=== PATIENT | female | born 1945 | race Caucasian/White ===

== ENCOUNTER 2021-04-16 12:55 | Emergency (ER) | payer MEDICARE, OTHER ==
[~2021-04-16 12:55] MED LIST: ACID CONTROL150 MG PO; IMDUR 30MG TABL30 MG PO; LOPRESSOR25 MG PO; LORTAB 5-325 M1 EACH PO; NEURONTIN300 M1 PO; PLAVIX75 MG PO; SYMBICORT 1601 PUFFS INH; ZETIA10 MG PO; ZOCOR40 MG PO
[2021-04-16 15:06] LABS: BASOPHIL 0.4 % (0-2); HCT 41.2 % (37.0-47.0); HGB 13.4 g/dl (12.5-16.0); LYMPHOCYTE 25.9 % (15-48); MCHC 32.5 g/dL (32.0-36.0); MCV 95.4 fL (78.0-100.0); MPV 10.8 fL (6.0-9.5); NEUTROPHIL 64.3 % (41-80); NRBC 0; PLT 168 K/uL (150-400); RBC 4.32 M/uL (4.20-5.40); RDW 13.3 % (11.5-14.0)
[2021-04-16 15:15] LABS: ALBUMIN 3.6 g/dL (3.4-5.0); BILIRUBIN - TOTAL 0.4 mg/dL (0.2-1.0); GLOBULIN (CALCULATION) 3.2 g/dL; POTASSIUM 5.6 mmol/L (3.5-5.1); TOTAL PROTEIN 6.8 g/dL (6.4-8.2)
[2021-04-16 16:39] LABS: BILIRUBIN NEGATIVE (NEGATIVE); BLOOD TRACE-INTACT Ery/uL (NEGATIVE); CLARITY CLEAR (CLEAR); COLOR YELLOW (YELLOW); GLUCOSE (U) NORMAL (NORMAL); LEUKOCYTES 1+ Leu/uL (NEGATIVE); NITRITE NEGATIVE (NEGATIVE); PROTEIN NEGATIVE (NEGATIVE); SPECIFIC GRAVITY >=1.030 (1.001-1.030); UROBILINOGEN 0.2 mg/dL (0.2-1.0)
[2021-04-16] MEDS ORDERED: ULTRAM50 MG PO (16:49)
[2021-04-16] MEDS ORDERED: ZOFRAN4 M1 PO (16:49)
[2021-04-16 16:53] LABS: BACTERIA 3+
== END 2021-04-16 17:18 | disposition home or self-care (01) ==
LOC: FER 12:55
PROVIDERS: Emergency Medicine
DX: M79.672 Pain in left foot (principal); M79.671 Pain in right foot; E87.5 Hyperkalemia; E11.9 Type 2 diabetes mellitus without complications; J44.9 Chronic obstructive pulmonary disease, unspecified; F17.200 Nicotine dependence, unspecified, uncomplicated; R11.2 Nausea with vomiting, unspecified; Z79.84 Long term (current) use of oral hypoglycemic drugs; Z79.02 Long term (current) use of antithrombotics/antiplatelets; Z79.891 Long term (current) use of opiate analgesic; Z79.899 Other long term (current) drug therapy
CPT/HCPCS: 36415; 80053; 81001; 85025; 87088; 93005

== ENCOUNTER 2021-08-21 01:47 | Emergency (ER) | payer MEDICARE, OTHER ==
[~2021-08-21 01:47] MED LIST changes: +LYRICA 50MG CAP50 MG PO; +METFORMIN HCL500 MG PO; +NORCO 5-325 TA1 EACH PO; +ULTRAM50 MG PO; +XARELTO10 MG PO; +ZOFRAN4 M1 PO
[2021-08-21 02:32] LABS: BASOPHIL 0.2 % (0-2); EOSINOPHIL 0.6 % (0-7); HCT 40.5 % (37.0-47.0); HGB 12.8 g/dl (12.5-16.0); LYMPHOCYTE 13.2 % (15-48); MCH 30.4 pg (25.0-31.0); MCHC 31.6 g/dL (32.0-36.0); MCV 96.2 fL (78.0-100.0); MONOCYTE 8.3 % (0-12); MPV 10.8 fL (6.0-9.5); NEUTROPHIL 77.4 % (41-80); NRBC 0; PLT 165 K/uL (150-400); RBC 4.21 M/uL (4.20-5.40); RDW 13.6 % (11.5-14.0)
[2021-08-21 02:45] LABS: ALBUMIN 3.5 g/dL (3.4-5.0); BILIRUBIN - TOTAL 0.3 mg/dL (0.2-1.0); BUN/CREAT RATIO (CALC) 21.4 RATIO; CREATININE 0.98 mg/dL (0.51-0.95); GLOBULIN (CALCULATION) 3.5 g/dL; POTASSIUM 4.2 mmol/L (3.5-5.1)
[2021-08-21 03:08] LABS: CORONAVIRUS 2019 SARS-COV-2 NEGATIVE (NEGATIVE); INFLUENZA A NAA NEGATIVE (NEGATIVE)
[2021-08-21] MEDS ORDERED: MEDROL 4MG DOSEP4 MG PO (04:56)
[2021-08-21] MEDS ORDERED: VENTOLIN HFA18 GM INH (04:56)
== END 2021-08-21 05:24 | disposition home or self-care (01) ==
LOC: FER 01:47
PROVIDERS: Emergency Medicine
DX: J44.1 Chronic obstructive pulmonary disease with (acute) exacerbation (principal); I25.10 Atherosclerotic heart disease of native coronary artery without angina pectoris; I10 Essential (primary) hypertension; E11.9 Type 2 diabetes mellitus without complications; F17.200 Nicotine dependence, unspecified, uncomplicated; Z88.6 Allergy status to analgesic agent; Z20.822 Contact with and (suspected) exposure to COVID-19
CPT/HCPCS: 36415; 71045; 71275; 80053; 84484; 85025; 85379; 93005; 94640; 94664; 94760; J2930; Q9967; U0002

== ENCOUNTER → 2021-09-23 | Day surgery (SDC) | payer MEDICARE, OTHER ==
[~2021-09-23] VITALS: Ht 160 cm; Wt 75.1 kg
[~2021-09-23] MED LIST changes: +MACROBID100 MG PO; +MEDROL 4MG DOSEP4 MG PO; +ONDANSETRON ODT8 MG PO; +VENTOLIN HFA18 GM INH; +XARELTO PO
[2021-09-23 09:58] LABS: HCT 40.8 % (37.0-47.0); HGB 12.9 g/dl (12.5-16.0); MCH 30.3 pg (25.0-31.0); MCHC 31.6 g/dL (32.0-36.0); MCV 95.8 fL (78.0-100.0); MPV 10.5 fL (6.0-9.5); RBC 4.26 M/uL (4.20-5.40); RDW 13.5 % (11.5-14.0); WBC 6.5 K/uL (4.0-10.5)
[2021-09-23 10:13] LABS: ALBUMIN 3.2 g/dL (3.4-5.0); BILIRUBIN - TOTAL 0.3 mg/dL (0.2-1.0); BUN/CREAT RATIO (CALC) 26.2 RATIO; CREATININE 0.84 mg/dL (0.51-0.95); GLOBULIN (CALCULATION) 3.6 g/dL; POTASSIUM 4.4 mmol/L (3.5-5.1); TOTAL PROTEIN 6.8 g/dL (6.4-8.2)
== END | disposition home or self-care (01) ==
LOC: FAS 08:35
PROVIDERS: Surgery
DX: K80.12 Calculus of gallbladder with acute and chronic cholecystitis without obstruction (principal); K66.0 Peritoneal adhesions (postprocedural) (postinfection); I25.10 Atherosclerotic heart disease of native coronary artery without angina pectoris; E11.40 Type 2 diabetes mellitus with diabetic neuropathy, unspecified; I10 Essential (primary) hypertension; E78.5 Hyperlipidemia, unspecified
CPT/HCPCS: 36415; 80053; 82962; 93005; C1758; J1170; J2250; J2405; J2704; J2710; J7120; Q9967

== ENCOUNTER 2021-11-05 18:33 | Emergency (ER) | payer MEDICARE, OTHER ==
[~2021-11-05 18:33] MED LIST changes: +ALDACTONE25 MG PO; +AZITHROMYCIN250 MG PO; +CEFDINIR300 MG PO; +PROTONIX 40MG T40 MG PO
[2021-11-05 19:59] LABS: BASOPHIL 0.2 % (0-2); EOSINOPHIL 0.4 % (0-7); HCT 41.8 % (37.0-47.0); HGB 13.3 g/dl (12.5-16.0); LYMPHOCYTE 3.5 % (15-48); MCHC 31.8 g/dL (32.0-36.0); MCV 94.1 fL (78.0-100.0); MONOCYTE 2.3 % (0-12); MPV 10.6 fL (6.0-9.5); NRBC 0; PLT 227 K/uL (150-400); RBC 4.44 M/uL (4.20-5.40); RDW 13.7 % (11.5-14.0); WBC 10.9 K/uL (4.0-10.5)
[2021-11-05 20:01] LABS: NEUTROPHIL 93.3 % (41-80)
[2021-11-05 20:11] LABS: ALBUMIN 3.5 g/dL (3.4-5.0); BILIRUBIN - TOTAL 0.4 mg/dL (0.2-1.0); BUN/CREAT RATIO (CALC) 21.7 RATIO; CREATININE 0.83 mg/dL (0.51-0.95); GLOBULIN (CALCULATION) 3.3 g/dL; POTASSIUM 3.5 mmol/L (3.5-5.1); TOTAL PROTEIN 6.8 g/dL (6.4-8.2)
[2021-11-05 21:01] LABS: INFLUENZA A NAA NEGATIVE (NEGATIVE)
[2021-11-05 21:06] LABS: CORONAVIRUS 2019 SARS-COV-2 POSITIVE (NEGATIVE)
== END 2021-11-06 00:15 | disposition home or self-care (01) ==
LOC: FER 18:33
PROVIDERS: Internal Medicine
DX: U07.1 COVID-19 (principal); R07.81 Pleurodynia; E11.9 Type 2 diabetes mellitus without complications; I10 Essential (primary) hypertension; F17.210 Nicotine dependence, cigarettes, uncomplicated; Z88.6 Allergy status to analgesic agent; Z86.73 Personal history of transient ischemic attack (TIA), and cerebral infarction without residual deficits
CPT/HCPCS: 36415; 71045; 80053; 84145; 84484; 85025; 93005; J1100; U0002